=== PATIENT | male | born 1945 | race Caucasian/White ===

== ENCOUNTER 2017-04-28 23:00 | Observation (INO) | payer OTHER ==
[~2017-04-28] VITALS: Ht 180.3 cm; Wt 115.1 kg
[~2017-04-28 23:00] MED LIST: AFRIN,GENASAL D15 ML BOTH NARES; FLONASE16 G1 BOTH NARES; K-DUR20 MEQ PO; LO-DOSE ASPIRIN81 M2 PO; NORVASC10 MG PO; NYQUIL D COLD295 ML PO; OCEAN NASAL 0.645 ML BOTH NARES; ZITHROMAX250 MG PO
[2017-04-28 23:46] LABS: HEMATOCRIT 50.4 % (38.0-50.0); MCH 31.5 PG (29.0-34.0); MCHC 33.9 G/DL (30.0-36.0); MEAN PLAT.VOLUME 12.2 uM^3 (9.0-12.4); PLATELET COUNT 169 K/uL (156-360); RBC DIS.WIDTH-CV 13.6 % (11.8-14.6); RBC DIS.WIDTH-SD 45.7 % (39-53); RED BLOOD COUNT 5.42 M/uL (4.00-5.50); WHITE BLOOD COUNT 10.9 K/uL (4.1-10.2)
[2017-04-28 23:59] LABS: CHLORIDE 107 mEq/L (99-109); POTASSIUM 3.5 mEq/L (3.7-5.4); SODIUM 141 mEq/L (136-147)
[2017-04-29 00:01] LABS: GLUCOSE 107 mg/dL (70-99)
[2017-04-29 00:02] LABS: ANION GAP 8 MEQ/L (2-14)
[2017-04-29 00:03] LABS: TOTAL BILIRUBIN 0.4 mg/dL (0.0-1.0)
[2017-04-29 00:05] LABS: ALKALINE PHOSPHATASE 59 IU/L (3-129); GFR ESTIMATE (CALCULATED) > 59 mL/min/ (58.99-99999)
[2017-04-29 00:06] LABS: UREA NITROGEN (BUN) 14 mg/dL (9-23)
[2017-04-29 00:08] LABS: LIPASE 30 U/L (1.0-51.0)
[2017-04-29 01:31] LABS: ADD MIUA? YES; BILIRUBIN NEGATIVE; BLOOD SMALL; COLOR STRAW ((YELLOW)); GLUCOSE (STRIP) NEGATIVE; KETONES NEGATIVE; LEUKOCYTES NEGATIVE; NITRITE NEGATIVE; PROTEIN (STRIP) NEGATIVE; SPECIFIC GRAVITY 1.032 (1.000-1.030); UROBILINOGEN 0.2 MG/DL (0.2-1.0)
[2017-04-29 01:34] LABS: BACTERIA NONE SEEN /HPF; EPITHELIAL CELLS NONE SEEN /HPF; MUCUS TRACE /LPF; RED BLOOD CELLS 0-5 /HPF (0-5); UCUL ADDED? NO; WHITE BLOOD CELLS 0-5 /HPF (0-5)
[2017-04-29] MEDS ORDERED: FINASTERIDE5 MG PO (01:53)
[2017-04-29 05:13] VITALS: BP 149/78
[2017-04-29 09:44] LABS: HEMATOCRIT 48.1 % (38.0-50.0); MCHC 33.3 G/DL (30.0-36.0); MCV 93.2 FL (86-99); MEAN PLAT.VOLUME 11.8 uM^3 (9.0-12.4); PLATELET COUNT 154 K/uL (156-360); RBC DIS.WIDTH-CV 13.5 % (11.8-14.6); RBC DIS.WIDTH-SD 46.7 % (39-53); RED BLOOD COUNT 5.16 M/uL (4.00-5.50); WHITE BLOOD COUNT 8.5 K/uL (4.1-10.2)
[2017-04-29 10:10] LABS: ANION GAP 6 MEQ/L (2-14); CHLORIDE 109 MEQ/L (99-109); GFR ESTIMATE (CALCULATED) > 59 mL/min/ (58.99-99999); GLUCOSE 101 mg/dL (70-99); SAMPLE HEMOLYSIS CHECK 0; SAMPLE ICTERIC CHECK 0; SAMPLE LIPEMIA CHECK 0; SODIUM 144 MEQ/L (136-147); UREA NITROGEN (BUN) 12 mg/dL (9-23)
[2017-04-29 16:32] VITALS: BP 154/74
[2017-04-29 20:39] VITALS: BP 181/84
[2017-04-29 23:22] VITALS: BP 138/64
[2017-04-30 03:46] VITALS: BP 145/81
[2017-04-30 05:40] LABS: BASOPHIL COUNT 0.1 K/uL (0-0.1); EOSINOPHIL COUNT 0.2 K/uL (0-0.3); HEMATOCRIT 45.7 % (38.0-50.0); IMMATURE GRANULOCYTE (%) 0.1 % (0.0-0.7); INSTRUMENT ABS NEUTROPHIL CT 4.1 K/uL; LYMPHOCYTE COUNT 1.8 K/uL (1.0-2.8); MCH 31.7 PG (29.0-34.0); MCHC 33.7 G/DL (30.0-36.0); MEAN PLAT.VOLUME 12.4 uM^3 (9.0-12.4); MONOCYTE (%) 8.8 % (3-12); MONOCYTE COUNT 0.6 K/uL (0-0.8); NEUTROPHIL (%) 61.2 % (45-76); NEUTROPHIL COUNT 4.1 K/uL (1.8-6.4); PLATELET COUNT 144 K/uL (156-360); RBC DIS.WIDTH-CV 13.3 % (11.8-14.6); RBC DIS.WIDTH-SD 46.4 % (39-53); RED BLOOD COUNT 4.86 M/uL (4.00-5.50); WHITE BLOOD COUNT 6.7 K/uL (4.1-10.2)
[2017-04-30 06:00] LABS: ANION GAP 9 MEQ/L (2-14); CHLORIDE 106 MEQ/L (99-109); GFR ESTIMATE (CALCULATED) > 59 mL/min/ (58.99-99999); GLUCOSE 92 mg/dL (70-99); POTASSIUM 3.7 MEQ/L (3.7-5.4); SAMPLE HEMOLYSIS CHECK 0; SAMPLE ICTERIC CHECK 0; SAMPLE LIPEMIA CHECK 0; SODIUM 142 MEQ/L (136-147); UREA NITROGEN (BUN) 13 mg/dL (9-23)
[2017-04-30 11:59] VITALS: BP 161/77
[2017-04-30] MEDS ORDERED: CIPRO500 MG PO (12:34)
[2017-04-30] MEDS ORDERED: FLAGYL500 MG PO (12:34)
== END 2017-04-30 15:05 | disposition home or self-care (01) ==
LOC: EME 23:00 → EDOF 04-29 02:52 → ENRESERV 04-29 02:53 → 5WEST 04-29 04:56
PROVIDERS: Hospitalist; Nurse Practitioner Adult Health
DX: K57.32 Diverticulitis of large intestine without perforation or abscess without bleeding (principal); E86.0 Dehydration; I10 Essential (primary) hypertension; N40.0 Benign prostatic hyperplasia without lower urinary tract symptoms; J31.0 Chronic rhinitis; D72.829 Elevated white blood cell count, unspecified; Z84.1 Family history of disorders of kidney and ureter; E66.9 Obesity, unspecified; Z68.35 Body mass index [BMI] 35.0-35.9, adult; D75.1 Secondary polycythemia; Z85.51 Personal history of malignant neoplasm of bladder; K21.9 Gastro-esophageal reflux disease without esophagitis; Z82.49 Family history of ischemic heart disease and other diseases of the circulatory system; Z87.891 Personal history of nicotine dependence
CPT/HCPCS: 74177; 80048; 80053; 81003; 83605; 83690; 85025; 85027; 87493; 99281; 99285; G0378; J0744; J1650; J2270; J2405; J7030; S0028; S0030